=== PATIENT | male | born 2000 | race African-American/Black ===

== ENCOUNTER 2019-11-17 10:06 | Emergency (ER) | payer OTHER ==
[~2019-11-17] VITALS: Ht 185.4 cm; Wt 81.8 kg
[2019-11-17 10:52] LABS: HEMATOCRIT 46.3 % (42.0-52.0); HEMOGLOBIN 14.1 g/dl (13.5-17.5); MEAN CORPUSCULAR HEMOGLOBIN 20.9 pg (27.0-33.0); MEAN CORPUSCULAR HGB CONC 30.5 g/dl (32.0-36.5); MEAN CORPUSCULAR VOLUME 68.7 fl (80.0-96.0); PLATELET COUNT, AUTOMATED 294 10^3/uL (150-450); RED BLOOD COUNT 6.74 10^6/uL (4.30-6.10); WHITE BLOOD COUNT 5.4 10^3/uL (4.0-10.0)
[2019-11-17 11:18] LABS: AMPHETAMINES LEVEL URINE NEGATIVE (NEGATIVE); BARBITURATES URINE NEGATIVE (NEGATIVE); BENZODIAZEPINES URINE NEGATIVE (NEGATIVE); CANNABINOIDS URINE NEGATIVE (NEGATIVE); COCAINE METABOLITE URINE NEGATIVE (NEGATIVE); METHADONE URINE NEGATIVE (NEGATIVE); OPIATES URINE NEGATIVE (NEGATIVE); PHENCYCLIDINE URINE NEGATIVE (NEGATIVE)
[2019-11-17 11:40] LABS: ACETAMINOPHEN LEVEL < 2.0 UG/ML (10.0-30.0); ALT/SGPT 25 U/L (12-78); BILIRUBIN,DIRECT 0.3 MG/DL (0.0-0.2); BILIRUBIN,TOTAL 1.5 MG/DL (0.2-1.0); BLOOD UREA NITROGEN 14 MG/DL (7-18); CALCIUM LEVEL 9.2 MG/DL (8.5-10.1); CARBON DIOXIDE LEVEL 27 MEQ/L (21-32); CHLORIDE LEVEL 108 MEQ/L (98-107); CREATININE FOR GFR 1.12 MG/DL (0.70-1.30); ETHYL ALCOHOL (ETHANOL) < 0.003 % (0.000-0.010); GLOMERULAR FILTRATION RATE > 60.0 (>60); GLUCOSE, FASTING 112 MG/DL (70-100); SALICYLATE LEVEL < 1.7 MG/DL (5.0-30.0); SODIUM LEVEL 141 MEQ/L (136-145); TOTAL PROTEIN 7.5 GM/DL (6.4-8.2)
--- NOTE | 2019-11-17 14:56 | ED PDOC ---
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 She reported that he had made some unusual comments; however, these comments when examined appeared to be primarily that he was tired of his difficulties with his job, but had not had any difficulties with suicidal thoughts. The patient reports in the past he had had some difficulties as a child, but currently he reports that he is doing well, although he is unhappy with after recently. He additionally allowed us to talk to his mother for collateral information who reported that although the patient had a history there was no recent difficulties that she could pinpoint or unusual behavior. Patient reports at times some situational low mood about being far away from his who lives in [place]. Review Of Systems Depression: The patient denies any episodes of unprovoked depressed mood associated with neurovegetative symptoms lasting longer than 2 weeks with symptoms present nearly everyday. Anxiety: The patient denies any excessive worry associated with physical symptoms. They deny any experience of discreet panic in the past. Ivana: The patient denies any episodes of euphoria/dysphoria associated with dec reased need for sleep, hedonism, talkatively or impulsivity lasting longer than 5 days. Psychotic: The patient denies any experiences of auditory or visual hallucinations. They deny any episodes of paranoia or delusional thinking in the past Trauma: The patient denies any traumatic events associated with nightmares or intrusive thoughts. Borderline: The patient screens negative for borderline personality at this junction. Past Psychiatric History Has a history of being admitted when he was a teenager for reported cutting. On no current psychiatric medication. Family Psychiatric History The patient denies/is unaware any history of mental health history including addictions and suicide. 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 She has 6 kids by other men who currently with his child. The patient reports that he is supported by the income no legal problems at this time and no pending problems with his MILLIE. Reports he smokes tobacco, but does not drink excessive drugs. Medical History Patient has no significant past medical history. Allergies See below Mental Status Examination General: Well dressed with good hygiene Speech: Spontaneous and fluid Thought processes: Linear and logical MSK: Smooth and coordinated gait, no signs of tremors or involuntary orofacial movements Thought content: Future orientated Abstract reasoning, and computation: Intact Description of associations: Intact Description of abnormal or psychotic thoughts: Denies any suicidal or homicidal ideation. Denies any auditory or visual hallucinations. Does not appear to be responding to internal stimuli. Does not appear to be endorsing any bizarre or paranoid ideation. Judgment: fair Insight: fair Orientation: Alert and orientated 3 Cognition: Grossly normal Recent and remote memory: Intact Attention span and concentration: Intact Fund of knowledge: Adequate Mood: "okay" Affect: Euthymic with a full range Diagnoses Mental health evaluation. 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 Collateral information and examination do not yield any significant signs of suicidality that can be used in order to hold the patient against his will. His mental status is generally normal. The patient at the time of discharge did not meet criteria for involuntary admission/extension due to having a normal mental status exam, fair insight into the situation, They are engaged in the discharge process, as well as being friendly and amenable in behavioral control and havent been engaging in any observed concerning behavior or ideation recently. They decline voluntary extension/admission at this time and must be discharged in good cesar, as Im unable to make a case for holding the patient against their will. They may have historical risk factors of admissions and other interactions with psychiatry however, those are not modifiable from a clinical perspective. The patient will need to be discharged in good cesar. Disposition Discharged to [facility] Time Spent 30 minutes. Saturday FUNMILAYO BENTON DO Nov 17, 2019 14:56
[2019-11-17 17:29] VITALS: BP 128/76
== END 2019-11-17 17:32 | disposition home or self-care (01) ==
LOC: M ED 10:06
DX: F43.0 Acute stress reaction (principal)
CPT/HCPCS: 80048; 80076; 80307; 84443; 85027; 99284; G0480

== ENCOUNTER 2019-12-04 00:01 | Inpatient (IN) | payer OTHER ==
[~2019-12-04] VITALS: Ht 185.4 cm; Wt 83.1 kg
[2019-12-04 02:26] LABS: HEMATOCRIT 44.8 % (42.0-52.0); HEMOGLOBIN 13.5 g/dl (13.5-17.5); MEAN CORPUSCULAR HEMOGLOBIN 20.8 pg (27.0-33.0); MEAN CORPUSCULAR HGB CONC 30.1 g/dl (32.0-36.5); MEAN CORPUSCULAR VOLUME 69.1 fl (80.0-96.0); PLATELET COUNT, AUTOMATED 296 10^3/uL (150-450); RED BLOOD COUNT 6.48 10^6/uL (4.30-6.10); WHITE BLOOD COUNT 6.6 10^3/uL (4.0-10.0)
[2019-12-04 03:08] LABS: ACETAMINOPHEN LEVEL < 2.0 UG/ML (10.0-30.0); ALBUMIN 3.6 GM/DL (3.2-5.2); ALT/SGPT 23 U/L (12-78); BILIRUBIN,DIRECT 0.2 MG/DL (0.0-0.2); BILIRUBIN,TOTAL 0.8 MG/DL (0.2-1.0); BLOOD UREA NITROGEN 14 MG/DL (7-18); CALCIUM LEVEL 8.9 MG/DL (8.5-10.1); CARBON DIOXIDE LEVEL 30 MEQ/L (21-32); CHLORIDE LEVEL 107 MEQ/L (98-107); CREATININE FOR GFR 0.98 MG/DL (0.70-1.30); ETHYL ALCOHOL (ETHANOL) < 0.003 % (0.000-0.010); GLOMERULAR FILTRATION RATE > 60.0 (>60); GLUCOSE, FASTING 96 MG/DL (70-100); POTASSIUM SERUM 4.1 MEQ/L (3.5-5.1); SALICYLATE LEVEL < 1.7 MG/DL (5.0-30.0); SODIUM LEVEL 141 MEQ/L (136-145); TOTAL PROTEIN 6.9 GM/DL (6.4-8.2)
[2019-12-04 04:42] LABS: AMPHETAMINES LEVEL URINE NEGATIVE (NEGATIVE); BARBITURATES URINE NEGATIVE (NEGATIVE); BENZODIAZEPINES URINE NEGATIVE (NEGATIVE); CANNABINOIDS URINE NEGATIVE (NEGATIVE); COCAINE METABOLITE URINE NEGATIVE (NEGATIVE); METHADONE URINE NEGATIVE (NEGATIVE); OPIATES URINE NEGATIVE (NEGATIVE); PHENCYCLIDINE URINE NEGATIVE (NEGATIVE)
[2019-12-04] MEDS: NICOTINE 14 MG/24 HR TRANSDERMAL TD SCH (09:00)
[2019-12-04] MEDS ORDERED: MAALOX 30 ML SUSP *UDC PO PRN (13:30)
[2019-12-04] MEDS ORDERED: traZODone 50 MG TAB PO PRN (13:30)
[2019-12-04] MEDS ORDERED: ACETAMINOPHEN TAB 650MG DOSE (2X325MG) PO PRN (13:30)
[2019-12-04] MEDS ORDERED: MOM 30ML SUSPENSION UDC PO PRN (13:30)
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
--- NOTE | 2019-12-04 14:56 | ECGEPIP ---
[facility] Test Date: 2019-12-04 Pat Name: DEBORAH DHILLON Department: Room: - Gender: Male Peer Health Promoter: lazaro : 2000 Requested By: BRAEDEN Louis Order Number: [id number] Reading MD: Amandeep Hall Measurements Intervals [place] Rate: 52 P: 17 NM: 157 QRS: 85 QRSD: 105 T: 51 QT: 412 QTc: 386 Interpretive Statements SINUS BRADYCARDIA ST ELEVATION, PROBABLY EARLY REPOLARIZATION Comparison tracing not on file Electronically Signed on 12-04-2019 14:56:18 EST by Amandeep Hall
--- NOTE | 2019-12-04 16:06 | HPEPDOC ---
General Date of Admission Dec 04, 2019 at 13:21 Date of Service: Dec 04, 2019 Chief Complaint The patient is a 19-year-old male admitted with a reason for visit of Unspecified Depressive Disorder. Source: Patient Exam Limitations: No limitations Timing/Duration: Getting worse Severity: Moderate Associated Symptoms: Denies Symptoms History of Present Illness Patient is a 19-year-old male who has been admitted to the inpatient mental health unit following a attempted suicide. Patient reported that he acted foolishly after arguing with his . He placed a knife to his throat threaten ing to cut himself, but he was stopped in time. Patient denies any previous attempts at suicide. He can remember being on antidepressants in the past, but these were reportedly discontinued as he had become stable. Patient denies any current thoughts of HI/SI Home Medications No Active Prescriptions or Reported Meds Allergies Coded Allergies: No Known Allergies (Unverified , 11/17/19) Past Medical History Medical History Unremarkable Surgical History Pinned left shoulder following to fractures Family History Significant Family History: Diabetes Social History * Smoker: current smoker, cigarettes (3-4 per day) Alcohol: Denies Drugs: denies A-FIB/CHADSVASC A-FIB History Current/History of A-Fib/PAF?: No Current PO Anticoag Therapy: No Review of Systems Constitutional: Denies: Chills, Fever, Night Sweats Eyes: Denies: Pain, Vision change ENT: Denies: Head Aches, Ear Pain, Dysphagia Skin: Denies: Rash, Lesions, Breakdown Pulmonary: Denies: Dyspnea, Cough Cardiovascular: Denies: Chest Pain, Palpitations, Orthopnea, Paroxysmal Noc. Dyspnea, Lt Headedness Gastrointestinal: Denies: Nausea, Vomiting, Abdominal Pain, Diarrhea Genitourinary: Denies: Dysuria, Frequency, Incontinence, Retention Hematologic: Denies: Bruising, Bleeding Excessively Musculoskeletal: Denies: Neck Pain, Back Pain, Joint Pain, Muscle Pain, Spasms Neurological: Denies: Weakness, Numbness, Change in speech, Confusion Psych: Reports: Mood Normal; Denies: Depression, Memory Issues Physical Examination General Exam: Positive: Alert, No Acute Distress Eye Exam: Positive: PERRLA, Conjunctiva & lids normal, EOMI; Negative: Sclera icteric ENT Exam: Positive: Atraumatic, Mucous membr. moist/pink, Pharynx Normal Neck Exam: Positive: Supple; Negative: thyromegaly Chest Exam: Positive: Clear to auscultation, Normal air movement Heart Exam: Positive: Rate Normal, Regular Rhythm, Normal S1, Normal S2; Negative: Murmurs, Rubs Telemetry: Positive: No significant arrhythmia Abdomen Exam: Positive: Normal bowel sounds, Soft; Negative: Tenderness Extremity Exam: Positive: Normal pulses; Negative: Clubbing, Cyanosis, Edema Skin Exam: Positive: Nl turgor and temperature Neuro Exam: Positive: Normal Gait, Normal Speech, Strength at 5/5 X4 ext, Cranial Nerves 3-12 NL Psych Exam: Positive: Mood NL, Oriented x 3 Vital Signs Vital Signs Date Time Temp Pulse Resp B/P (MAP) Pulse Ox O2 Delivery O2 Flow Rate FiO2 12/04/19 03:49 97.6 57 15 119/60 (79) 100 Room Air Laboratory Data Labs 24H Laboratory Tests 2 12/04/19 02:17: Nucleated Red Blood Cells % (auto) 0.0, Anion Gap 4L, Glomerular Filtration Rate > 60.0, Calcium Level 8.9, Total Bilirubin 0.8, Direct Bilirubin 0.2, Aspartate Amino Transf (AST/SGOT) 12, Alanine Aminotransferase (ALT/SGPT) 23, Alkaline Phosphatase 62, Total Protein 6.9, Albumin 3.6, Albumin/Globulin Ratio 1.09, Thyroid Stimulating Hormone (TSH) 1.390, Salicylates Level < 1.7L, Acetaminophen Level < 2.0L, Ethyl Alcohol Level < 0.003 12/04/19 04:06: Urine Opiates Screen NEGATIVE, Urine Methadone Screen NEGATIVE, Urine Barbiturates Screen NEGATIVE, Urine Phencyclidine Screen NEGATIVE, Urine Amphetamines Screen NEGATIVE, Urine Benzodiazepines Screen NEGATIVE, Urine Cocaine Metabolite Screen NEGATIVE, Urine Cannabinoids Screen NEGATIVE CBC/BMP Laboratory Tests 12/04/19 02:17 Assessment/Plan #1. Depressive disorder, with suicide attempt Management as per psychiatry. Medicine will sign off at this time. Please feel free to reconsult as needed. Plan / VTE VTE Prophylaxis Ordered?: QUYNH Pina PA-C Dec 04, 2019 16:06
[2019-12-04 16:12] VITALS: BP 116/57
[2019-12-05 05:47] VITALS: BP 111/55
[2019-12-05] MEDS: NICOTINE 14 MG/24 HR TRANSDERMAL TD SCH (08:54)
[2019-12-05 16:05] VITALS: BP 136/79
[2019-12-06 06:19] VITALS: BP 116/50
[2019-12-06] MEDS: NICOTINE POLACRILEX 2 MG GUM PO PRN ×2 (08:22→17:39)
[2019-12-06 16:16] VITALS: BP 106/56
--- NOTE | 2019-12-06 16:48 | MHIPN ---
DATE: 12/05/2019 The patient states that when he voiced suicidal ideations prior to admission it was "in the heat of the moment situation." He says that he was angry at the time. He says that his mood today is "better." He says that he slept good. He says his and he have talked about the fact that they need to go do marital counseling. MENTAL STATUS EXAMINATION: He is alert and oriented times three. He is pleasant, cooperative, verbally spontaneous. Eye contact is fairly good. There is no formal thought disorder noted. He says his mood is "better, calmer." Affect is appropriate to mood. He is not psychotic, suicidal or homicidal. Concentration is fair. Memory is good. Insight and judgment fair. DIAGNOSES: 1. Depression. 2. Anxiety. TREATMENT PLAN: We will continue to monitor the patient for continued resolution of suicidal ideations and continued elevation of mood.
[2019-12-06] MEDS: IBUPROFEN 400 MG TAB PO PRN (17:39)
[2019-12-07 06:12] VITALS: BP 142/62
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
[2019-12-07] MEDS: IBUPROFEN 400 MG TAB PO PRN (08:32)
[2019-12-07] MEDS: NICOTINE POLACRILEX 2 MG GUM PO PRN (08:32)
--- NOTE | 2019-12-07 18:44 | MHIPN ---
DATE: 12/06/2019 The patient today states "I'm doing pretty good." He says he slept good. He has no complaints. He continues to say when he voiced suicidal ideation, it was an impulsive act at a time that he was arguing. MENTAL STATUS EXAMINATION: This patient is alert and oriented times three. Eye contact is good. He is verbally spontaneous. There is formal thought disorder noted. He says his mood is okay. Affect full range and appropriate. He is not psychotic, suicidal or homicidal. Concentration is fair. Memory intact. Insight and judgment is fair. DIAGNOSIS: Adjustment disorder with depression and anxiety. TREATMENT PLAN: We will continue to monitor the patient for continued elevation and stabilization of his mood and continued resolution of suicidal ideations.
== END 2019-12-07 12:00 | disposition home or self-care (01) | DRG 882 ==
LOC: M ED 00:01 → M ED INP 13:21 → M PSY 15:06
PROVIDERS: ADMIT Psychiatry & Neurology Psychiatry; ATTEND Psychiatry & Neurology Psychiatry
DX: F43.23 Adjustment disorder with mixed anxiety and depressed mood (principal); F17.210 Nicotine dependence, cigarettes, uncomplicated

== ENCOUNTER 2020-01-08 21:54 | Emergency (ER) | payer OTHER ==
[~2020-01-08] VITALS: Ht 185.4 cm; Wt 82.3 kg
[2020-01-08 21:54] VITALS: BP 122/66
[2020-01-08] MEDS ORDERED: ACETAMINOPHEN 325 MG TAB PO ONE (22:45)
[2020-01-08] MEDS ORDERED: KETOROLAC 60 MG/2 ML VIAL (J1885) IM ONE (22:45)
[2020-01-08] MEDS ORDERED: KETO10TAB PO (23:30)
[2020-01-08] MEDS ORDERED: KETOROLAC TROMETHAMINE 10 MG TAB PO ONE (23:45)
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
== END 2020-01-08 23:47 | disposition home or self-care (01) ==
LOC: M ED 21:54
DX: S83.422A Sprain of lateral collateral ligament of left knee, initial encounter (principal); X50.0XXA Overexertion from strenuous movement or load, initial encounter; Y92.019 Unspecified place in single-family (private) house as the place of occurrence of the external cause; Y93.83 Activity, rough housing and horseplay
CPT/HCPCS: 73564; 96372; 99284; J1885

== ENCOUNTER 2020-10-06 13:32 | Emergency (ER) | payer OTHER ==
[~2020-10-06] VITALS: Ht 185.4 cm; Wt 117.6 kg
[~2020-10-06 13:32] MED LIST: KETO10TAB PO
--- NOTE | 2020-10-06 15:26 | REP ---
INDICATION: lac to hand from glass COMPARISON: None. TECHNIQUE: Four views left fingers. FINDINGS: There is no evidence of acute fracture, dislocation, or intrinsic bone disease.No radiopaque foreign body is seen in the soft tissues. IMPRESSION: No fracture or dislocation. No radiopaque foreign body is seen in the soft tissues. <Electronically signed by Kevin Wong > 10/06/20 [id number]
[2020-10-06] MEDS ORDERED: LIDOCAINE 1% MDV 20ML VIAL SC ONE (16:00)
[2020-10-06] MEDS ORDERED: NEOSPORIN OINT 0.9 GM PKT TOP ONE (16:30)
[2020-10-06 16:34] VITALS: BP 121/72
== END 2020-10-06 16:34 | disposition home or self-care (01) ==
LOC: M ED 13:32
DX: S61.411A Laceration without foreign body of right hand, initial encounter (principal); W25.XXXA Contact with sharp glass, initial encounter; Y92.009 Unspecified place in unspecified non-institutional (private) residence as the place of occurrence of the external cause; Y93.9 Activity, unspecified; Y99.9 Unspecified external cause status; F17.200 Nicotine dependence, unspecified, uncomplicated

== ENCOUNTER 2021-04-11 07:40 | Emergency (ER) | payer OTHER ==
[~2021-04-11] VITALS: Ht 185.4 cm; Wt 124.1 kg
[2021-04-11 07:41] VITALS: BP 121/68
--- NOTE | 2021-04-11 08:59 | REP ---
INDICATION: pain COMPARISON: None TECHNIQUE: Five views FINDINGS: The compartments are symmetric and relatively well maintained. There is no acute fracture or destructive osseous lesion. IMPRESSION: Within normal limits <Electronically signed by Baljit Thayer > 04/11/21 [id number]
== END 2021-04-11 09:33 | disposition home or self-care (01) ==
LOC: M ED 07:40
DX: M25.561 Pain in right knee (principal); F33.9 Major depressive disorder, recurrent, unspecified; F41.9 Anxiety disorder, unspecified; F17.210 Nicotine dependence, cigarettes, uncomplicated

== ENCOUNTER 2021-06-19 08:14 | Emergency (ER) | payer OTHER ==
[2021-06-19] MEDS ORDERED: NS 1,000 ML IV SCH (09:15)
[2021-06-19] MEDS ORDERED: GI COCKTAIL 50ML BTL(HYOSCYAMINE/MAALOX/LIDOCAINE VISCOUS)(1:3:1) PO ONE (09:35)
--- NOTE | 2021-06-19 09:39 | REP ---
INDICATION: CHEST PAIN. COMPARISON: None. TECHNIQUE: PA and lateral FINDINGS: The superior mediastinal structures are midline. The cardiac silhouette is unremarkable in size, shape, and position. The diaphragmatic surfaces of the lungs are regular, and the costophrenic angles are clear. The pulmonary lau are clear. The imaged osseous structures are intact. IMPRESSION: There is no acute cardiopulmonary disease. <Electronically signed by Baljit Thayer > 06/19/21 [id number]
[2021-06-19 10:27] LABS: BASO % 0.4 % (0.0-1.0); EOS # 0.8 10^3/uL (0.0-0.5); EOS % 11.7 % (0.0-3.0); HEMATOCRIT 45.2 % (42.0-52.0); HEMOGLOBIN 13.7 g/dl (13.5-17.5); LYMPH # 2.6 10^3/uL (1.5-5.0); LYMPH % 36.4 % (24.0-44.0); MEAN CORPUSCULAR HEMOGLOBIN 21.2 pg (27.0-33.0); MEAN CORPUSCULAR HGB CONC 30.3 g/dl (32.0-36.5); MONO # 0.7 10^3/uL (0.0-0.8); MONO % 10.6 % (2.0-8.0); NEUTROPHILS # 2.9 10^3/uL (1.5-8.5); NEUTROPHILS % 40.6 % (36.0-66.0); PLATELET COUNT, AUTOMATED 285 10^3/uL (150-450); RED BLOOD COUNT 6.46 10^6/uL (4.30-6.10)
[2021-06-19 11:04] LABS: BLOOD UREA NITROGEN 8 MG/DL (7-18); CALCIUM LEVEL 8.8 MG/DL (8.5-10.1); CARBON DIOXIDE LEVEL 24 MEQ/L (21-32); CHLORIDE LEVEL 108 MEQ/L (98-107); CK-MB VALUE MASS < 1.0 NG/ML (<3.6); CPK CREATINE PHOSPHOKINASE 247 U/L (39-308); CREATININE FOR GFR 0.87 MG/DL (0.70-1.30); GLOMERULAR FILTRATION RATE > 60.0 (>60); GLUCOSE, FASTING 93 MG/DL (70-100); POTASSIUM SERUM 4.3 MEQ/L (3.5-5.1); SODIUM LEVEL 140 MEQ/L (136-145); TROPONIN I < 0.02 NG/ML (< 0.10)
[2021-06-19] MEDS ORDERED: MORPHINE 4 MG/ML 1ML VIAL/SYRINGE (J2270) IV ONE (11:10)
[2021-06-19] MEDS ORDERED: ISOVUE-370 76% 100ML VIAL As Ordered ONE (11:32)
--- NOTE | 2021-06-19 12:45 | REP ---
INDICATION: chest pain. COMPARISON: Radiographs today. TECHNIQUE: CT angiogram chest performed following the intravenous administration of 100 cc of Isovue 370. Sagittal and coronal reconstruction images are performed. FINDINGS: Lungs: Clear, no infiltrate or nodule. Mediastinum: No adenopathy. Pulmonary arteries: No evidence of pulmonary embolism. Rajni: No adenopathy. Axilla: No adenopathy. Pleura: No effusion. Heart: Not enlarged. Thoracic aorta: No aneurysm or dissection. Upper abdominal structures: Unremarkable. Visualized osseous structures: Unremarkable. IMPRESSION: No CT evidence of pulmonary embolism. No infiltrate seen. <Electronically signed by Kevin Wong > 06/19/21 [id number]
[2021-06-19 13:12] LABS: ALBUMIN 2.9 GM/DL (3.2-5.2); ALT/SGPT 21 U/L (12-78); BILIRUBIN,DIRECT 0.2 MG/DL (0.0-0.2); BILIRUBIN,TOTAL 0.6 MG/DL (0.2-1.0); CK-MB VALUE MASS < 1.0 NG/ML (<3.6); CPK CREATINE PHOSPHOKINASE 221 U/L (39-308); LIPASE 72 U/L (73-393); MB/CK RELATIVE INDEX 0.45 (< OR =4); TOTAL PROTEIN 6.1 GM/DL (6.4-8.2); TROPONIN I < 0.02 NG/ML (< 0.10)
[2021-06-19 14:43] VITALS: BP 129/67
--- NOTE | 2021-06-20 13:49 | ECGEPIP ---
[facility] - ED Test Date: 2021-06-19 Pat Name: DEBORAH DHILLON Department: Room: - Gender: Male Digital Account Manager: : 2000 Requested By: MICH Lyons Order Number: [id number] Reading MD: Bertha Rose Measurements Intervals [place] Rate: 68 P: 52 [place]: 172 QRS: 58 QRSD: 84 T: 10 QT: 398 QTc: 423 Interpretive Statements Normal sinus rhythm increased rate 12/04/19 Electronically Signed on 06-20-2021 13:48:41 EDT by Bertha Rose
--- NOTE | 2021-06-20 20:17 | ECGEPIP ---
[facility] - ED Test Date: 2021-06-19 Pat Name: DEBORAH DHILLON Department: Room: - Gender: Male Back Roller: ED : 2000 Requested By: MARITA Rosario Order Number: [id number] Reading MD: Bertha Rose Measurements Intervals [place] Rate: 66 P: 51 [place]: 164 QRS: 77 QRSD: 80 T: 10 QT: 382 QTc: 400 Interpretive Statements Normal sinus rhythm increased rate 12/04/19 Electronically Signed on 06-20-2021 20:16:50 EDT by Bertha Rose
== END 2021-06-19 14:45 | disposition home or self-care (01) ==
LOC: M ED 08:14 → EDBD 08:14 → M ED 14:45
DX: M94.0 Chondrocostal junction syndrome [Tietze] (principal); S29.011A Strain of muscle and tendon of front wall of thorax, initial encounter; X50.0XXA Overexertion from strenuous movement or load, initial encounter; Y92.9 Unspecified place or not applicable; Y93.B3 Activity, free weights; Y99.9 Unspecified external cause status; F32.9 Major depressive disorder, single episode, unspecified
CPT/HCPCS: 71046; 71275; 80048; 80076; 82550; 82553; 83690; 84484; 85025; 85379; 93005; 93041; 94760; 96361; 96374; 99285; J2270; Q9967

== ENCOUNTER 2021-06-26 09:13 | Emergency (ER) | payer OTHER ==
[~2021-06-26] VITALS: Ht 180.3 cm; Wt 125.0 kg
[2021-06-26] MEDS ORDERED: KETOROLAC TROMETHAMINE 10 MG TAB PO ONE (11:30)
--- NOTE | 2021-06-26 12:15 | REP ---
INDICATION: sternal pain. COMPARISON: Comparison chest x-ray June 19, 2021 TECHNIQUE: Five views of the bilateral rib cage including PA chest. FINDINGS: PA chest radiograph is normal. There is no evidence of pneumothorax or hydrothorax. Mediastinum is not widened. Heart size is normal. Lung lau are clear. Multiple views of the ribs bilaterally demonstrate no rib or sternal fracture or bony destructive lesion. Overall mineralization pattern is normal. IMPRESSION: Negative bilateral rib radiographs. <Electronically signed by Margarito Atkinson > 06/26/21 1216
--- NOTE | 2021-06-26 12:24 | REPVR ---
PROCEDURE INFORMATION: Exam: CT Thoracic Spine Without Contrast Exam date and time: 06/26/2021 11:58 AM Age: 21 years old Clinical indication: Other: Chest pain x1 week; Additional info: Pain x 1 week TECHNIQUE: Imaging protocol: Computed tomography images of the thoracic spine without contrast. Radiation optimization: All CT scans at this facility use at least one of these dose optimization techniques: automated exposure control; mA and/or kV adjustment per patient size (includes targeted exams where dose is matched to clinical indication); or iterative reconstruction. COMPARISON: CT ANGIO CHEST 06/19/2021 12:26 PM FINDINGS: Vertebrae: No acute fracture. Normal alignment. Discs/Spinal canal/Neural foramina: No significant spinal canal stenosis. Soft tissues: Unremarkable. IMPRESSION: Unremarkable thoracic spine. Electronically signed by: Oj Zhao On 06/26/2021 12:23:31 PM
[2021-06-26 12:49] LABS: RSV AMPLIFICATION NEGATIVE (NEGATIVE)
[2021-06-26 13:21] VITALS: BP 146/90
== END 2021-06-26 13:25 | disposition home or self-care (01) ==
LOC: M ED 09:13
DX: R07.1 Chest pain on breathing (principal); F17.200 Nicotine dependence, unspecified, uncomplicated

== ENCOUNTER 2021-12-24 19:53 | Emergency (ER) | payer OTHER ==
[~2021-12-24] VITALS: Ht 182.9 cm; Wt 122.7 kg
[2021-12-24] MEDS ORDERED: NS 1,000 ML IV ONE (20:00)
[2021-12-24 20:47] LABS: BASO % 0.3 % (0.0-1.0); EOS # 0.2 10^3/uL (0.0-0.5); EOS % 2.9 % (0.0-3.0); HEMATOCRIT 45.4 % (42.0-52.0); LYMPH # 2.3 10^3/uL (1.5-5.0); LYMPH % 34.9 % (24.0-44.0); MEAN CORPUSCULAR HEMOGLOBIN 20.9 pg (27.0-33.0); MEAN CORPUSCULAR HGB CONC 30.8 g/dl (32.0-36.5); MEAN CORPUSCULAR VOLUME 67.9 fl (80.0-96.0); MONO % 14.6 % (2.0-8.0); NEUTROPHILS # 3.1 10^3/uL (1.5-8.5); NEUTROPHILS % 47.1 % (36.0-66.0); PLATELET COUNT, AUTOMATED 316 10^3/uL (150-450); RED BLOOD COUNT 6.69 10^6/uL (4.30-6.10); WHITE BLOOD COUNT 6.6 10^3/uL (4.0-10.0)
[2021-12-24 20:58] LABS: INR 0.98; PROTHROMBIN TIME 13.4 SECONDS (12.7-14.5)
[2021-12-24 20:59] LABS: PARTIAL THROMBOPLASTIN TIME 31.5 SECONDS (25.9-37.0)
[2021-12-24 21:12] LABS: ALBUMIN 3.4 GM/DL (3.2-5.2); ALT/SGPT 19 U/L (12-78); AMYLASE 54 U/L (25-115); BILIRUBIN,DIRECT 0.2 MG/DL (0.0-0.2); BILIRUBIN,TOTAL 0.8 MG/DL (0.2-1.0); BLOOD UREA NITROGEN 9 MG/DL (7-18); CALCIUM LEVEL 9.3 MG/DL (8.5-10.1); CARBON DIOXIDE LEVEL 26 MEQ/L (21-32); CHLORIDE LEVEL 106 MEQ/L (98-107); CREATININE FOR GFR 0.87 MG/DL (0.70-1.30); ETHYL ALCOHOL (ETHANOL) < 0.003 % (0.000-0.010); GLOMERULAR FILTRATION RATE > 60.0 (>60); GLUCOSE, FASTING 88 MG/DL (70-100); LIPASE 66 U/L (73-393); POTASSIUM SERUM 3.6 MEQ/L (3.5-5.1); SODIUM LEVEL 137 MEQ/L (136-145); TOTAL PROTEIN 7.5 GM/DL (6.4-8.2)
[2021-12-24] MEDS ORDERED: KETOROLAC 30 MG/ML 1ML VIAL IV ONE (21:35)
[2021-12-24 22:11] LABS: APPEARANCE, URINE CLEAR (CLEAR); BACTERIA, URINE AUTO NEGATIVE (NEGATIVE); BILIRUBIN, URINE AUTO NEGATIVE (NEGATIVE); BLOOD, URINE BLOOD NEGATIVE (NEGATIVE); COLOR, URINE YELLOW (YELLOW); GLUCOSE, URINE (UA) AUTO NEGATIVE (NEGATIVE); KETONE, URINE AUTO NEGATIVE (NEGATIVE); LEUKOCYTE ESTERASE, URINE AUTO NEGATIVE (NEGATIVE); MUCUS, URINE SMALL (NEGATIVE); NITRITE, URINE AUTO NEGATIVE (NEGATIVE); PROTEIN, URINE AUTO NEGATIVE (NEGATIVE); RBC, URINE AUTO 0 /HPF (0-3); SPECIFIC GRAVITY URINE AUTO 1.014 (1.002-1.035); SQUAMOUS EPITHELIAL CELL UR AU 1 /HPF (0-6); UROBILINOGEN, URINE AUTO 0.2 mg/dL (0.0-2.0); WBC, URINE AUTO 0 /HPF (0-3)
[2021-12-24 22:40] LABS: AMPHETAMINES LEVEL URINE NEGATIVE (NEGATIVE); BARBITURATES URINE NEGATIVE (NEGATIVE); BENZODIAZEPINES URINE NEGATIVE (NEGATIVE); CANNABINOIDS URINE POSITIVE (NEGATIVE); COCAINE METABOLITE URINE NEGATIVE (NEGATIVE); METHADONE URINE NEGATIVE (NEGATIVE); OPIATES URINE NEGATIVE (NEGATIVE); PHENCYCLIDINE URINE NEGATIVE (NEGATIVE)
[2021-12-24 23:15] VITALS: BP 119/77
== END 2021-12-24 23:56 | disposition home or self-care (01) ==
LOC: M ED 19:53
DX: S06.9X0A Unspecified intracranial injury without loss of consciousness, initial encounter (principal); V47.5XXA Car driver injured in collision with fixed or stationary object in traffic accident, initial encounter; M43.02 Spondylolysis, cervical region
CPT/HCPCS: 36600; 70450; 71250; 72125; 74176; 80048; 80076; 80307; 81001; 82077; 82150; 82803; 83605; 83690; 84484; 85025; 85610; 85730; 87798; 93005; 93041; 94760; 96361; 96374; 99285; J1885

== ENCOUNTER 2021-12-26 10:48 | Emergency (ER) | payer OTHER ==
[~2021-12-26] VITALS: Ht 180.3 cm; Wt 122.7 kg
[2021-12-26] MEDS ORDERED: KETOROLAC 30 MG/ML 1ML VIAL IV ONE (15:00)
[2021-12-26] MEDS ORDERED: ACETAMINOPHEN 325 MG TAB PO ONE (15:00)
[2021-12-26] MEDS ORDERED: NS 1,000 ML IV ONE (15:00)
[2021-12-26] MEDS ORDERED: METOCLOPRAMIDE INJ 10MG/2ML VIAL (J2765 PER 1) IV ONE (15:00)
[2021-12-26] MEDS ORDERED: ONDA4TAB6 PO (16:33)
[2021-12-26] MEDS ORDERED: KETO10TAB PO (16:33)
[2021-12-26 16:40] VITALS: BP 126/81
== END 2021-12-26 16:57 | disposition home or self-care (01) ==
LOC: M ED 10:48
DX: F07.81 Postconcussional syndrome (principal); F17.200 Nicotine dependence, unspecified, uncomplicated; F32.A Depression, unspecified; F41.8 Other specified anxiety disorders; Z87.01 Personal history of pneumonia (recurrent)
CPT/HCPCS: 70450; 96361; 96374; 99284; J1885; J2765

== ENCOUNTER 2022-02-20 18:13 | Inpatient (IN) | payer OTHER ==
[~2022-02-20] VITALS: Ht 185.4 cm; Wt 128.2 kg
[~2022-02-20 18:13] MED LIST changes: +ONDA4TAB6 PO
[2022-02-20] MEDS ORDERED: ISOVUE-370 76% 100ML VIAL As Ordered ONE (19:06)
[2022-02-20 19:17] LABS: BASO % 0.4 % (0.0-1.0); EOS # 0.3 10^3/uL (0.0-0.5); EOS % 3.7 % (0.0-3.0); HEMATOCRIT 47.2 % (42.0-52.0); HEMOGLOBIN 14.2 g/dl (13.5-17.5); LYMPH # 2.8 10^3/uL (1.5-5.0); LYMPH % 36.9 % (24.0-44.0); MEAN CORPUSCULAR HEMOGLOBIN 20.8 pg (27.0-33.0); MEAN CORPUSCULAR HGB CONC 30.1 g/dl (32.0-36.5); MONO # 0.8 10^3/uL (0.0-0.8); MONO % 10.3 % (2.0-8.0); NEUTROPHILS # 3.6 10^3/uL (1.5-8.5); NEUTROPHILS % 48.4 % (36.0-66.0); PLATELET COUNT, AUTOMATED 339 10^3/uL (150-450); RED BLOOD COUNT 6.84 10^6/uL (4.30-6.10); WHITE BLOOD COUNT 7.5 10^3/uL (4.0-10.0)
[2022-02-20 19:31] LABS: OSMOLALITY SERUM 286 MOSM/KG (275-295)
[2022-02-20 19:33] LABS: CK-MB VALUE MASS 1.1 NG/ML (<3.6); MB/CK RELATIVE INDEX 0.36 (< OR =4)
[2022-02-20 19:40] LABS: ACETAMINOPHEN LEVEL < 2.0 UG/ML (10.0-30.0); ALBUMIN 3.8 GM/DL (3.2-5.2); ALT/SGPT 20 U/L (12-78); BILIRUBIN,DIRECT 0.2 MG/DL (0.0-0.2); BILIRUBIN,TOTAL 0.7 MG/DL (0.2-1.0); BLOOD UREA NITROGEN 8 MG/DL (7-18); CALCIUM LEVEL 9.8 MG/DL (8.5-10.1); CARBON DIOXIDE LEVEL 24 MEQ/L (21-32); CHLORIDE LEVEL 107 MEQ/L (98-107); CREATININE FOR GFR 1.19 MG/DL (0.70-1.30); ETHYL ALCOHOL (ETHANOL) < 0.003 % (0.000-0.010); GLOMERULAR FILTRATION RATE > 60.0 (>60); GLUCOSE, FASTING 125 MG/DL (70-100); POTASSIUM SERUM 3.9 MEQ/L (3.5-5.1); SALICYLATE LEVEL < 1.7 MG/DL (5.0-30.0); SODIUM LEVEL 135 MEQ/L (136-145); TOTAL PROTEIN 7.9 GM/DL (6.4-8.2)
[2022-02-20 19:57] LABS: RSV AMPLIFICATION NEGATIVE (NEGATIVE)
[2022-02-20] MEDS ORDERED: dexameTHASONE 20MG/5ML VIAL (J1100 PER 1MG) IV STA (22:36)
[2022-02-20] MEDS ORDERED: ACETAMINOPHEN TAB 650MG DOSE (2X325MG) PO PRN (23:10)
[2022-02-20] MEDS ORDERED: MAALOX 30 ML SUSP *UDC PO PRN (23:10)
[2022-02-20] MEDS ORDERED: MOM 30ML SUSPENSION UDC PO PRN (23:10)
[2022-02-20] MEDS ORDERED: HOME MED LIST COMPLETE! XX SCH (23:20)
[2022-02-20] MEDS: NS 1,000 ML IV SCH (23:59)
[2022-02-21] MEDS ORDERED: metroNIDAZOLE 500 MG in IV 1 EA IV SCH (00:40)
[2022-02-21] MEDS ORDERED: cefTRIAXone SOD 1 GM in D5W MINI-BAG PLUS 50 ML IV SCH (00:40)
[2022-02-21] MEDS: dexameTHASONE 4 MG/ML 1ML VIAL (J1100 PER 1MG) IV SCH ×4 (03:57→21:30)
[2022-02-21] MEDS: MORPHINE 2 MG/ML 1ML VIAL IV PRN ×2 (04:48→09:56)
[2022-02-21 07:46] LABS: BASO % 0.1 % (0.0-1.0); HEMATOCRIT 46.4 % (42.0-52.0); HEMOGLOBIN 13.9 g/dl (13.5-17.5); LYMPH # 1.5 10^3/uL (1.5-5.0); LYMPH % 17.2 % (24.0-44.0); MEAN CORPUSCULAR HEMOGLOBIN 20.9 pg (27.0-33.0); MEAN CORPUSCULAR VOLUME 69.9 fl (80.0-96.0); MONO # 0.1 10^3/uL (0.0-0.8); MONO % 1.4 % (2.0-8.0); NEUTROPHILS # 6.9 10^3/uL (1.5-8.5); NEUTROPHILS % 80.9 % (36.0-66.0); PLATELET COUNT, AUTOMATED 323 10^3/uL (150-450); RED BLOOD COUNT 6.64 10^6/uL (4.30-6.10); WHITE BLOOD COUNT 8.5 10^3/uL (4.0-10.0)
[2022-02-21] MEDS ORDERED: ISOVUE-370 76% 100ML VIAL As Ordered ONE (08:07)
[2022-02-21] MEDS: NS 1,000 ML IV SCH ×2 (08:10→09:55)
[2022-02-21 08:18] LABS: ALBUMIN 3.4 GM/DL (3.2-5.2); ALT/SGPT 13 U/L (12-78); BILIRUBIN,TOTAL 0.8 MG/DL (0.2-1.0); BLOOD UREA NITROGEN 7 MG/DL (7-18); CARBON DIOXIDE LEVEL 26 MEQ/L (21-32); CHLORIDE LEVEL 108 MEQ/L (98-107); CREATININE FOR GFR 1.03 MG/DL (0.70-1.30); GLOMERULAR FILTRATION RATE > 60.0 (>60); GLUCOSE, FASTING 133 MG/DL (70-100); MAGNESIUM LEVEL 2.2 MG/DL (1.8-2.4); POTASSIUM SERUM 4.8 MEQ/L (3.5-5.1); SODIUM LEVEL 138 MEQ/L (136-145); TOTAL PROTEIN 7.1 GM/DL (6.4-8.2)
[2022-02-21 20:38] VITALS: BP 108/71
[2022-02-21 21:03] VITALS: O2SAT 97
[2022-02-21] MEDS ORDERED: KETOROLAC 30 MG/ML 1ML VIAL IV PRN (21:35)
[2022-02-21 22:00] VITALS: O2SAT 94
[2022-02-21 22:02] VITALS: O2SAT 96
[2022-02-21 22:03] VITALS: BP 123/62
[2022-02-21 23:00] VITALS: O2SAT 95
[2022-02-22] VITALS (10 sets, daily range): BP systolic 106–121; BP diastolic 54–78; O2SAT 97–100
[2022-02-22] MEDS: dexameTHASONE 4 MG/ML 1ML VIAL (J1100 PER 1MG) IV SCH (04:19)
[2022-02-22] MEDS: NS 1,000 ML IV SCH (05:10)
[2022-02-22 07:35] LABS: HEMATOCRIT 41.7 % (42.0-52.0); HEMOGLOBIN 12.9 g/dl (13.5-17.5); MEAN CORPUSCULAR HEMOGLOBIN 21.5 pg (27.0-33.0); MEAN CORPUSCULAR HGB CONC 30.9 g/dl (32.0-36.5); MEAN CORPUSCULAR VOLUME 69.6 fl (80.0-96.0); PLATELET COUNT, AUTOMATED 323 10^3/uL (150-450); RED BLOOD COUNT 5.99 10^6/uL (4.30-6.10); WHITE BLOOD COUNT 12.7 10^3/uL (4.0-10.0)
[2022-02-22 07:54] LABS: BLOOD UREA NITROGEN 9 MG/DL (7-18); CALCIUM LEVEL 9.2 MG/DL (8.5-10.1); CARBON DIOXIDE LEVEL 27 MEQ/L (21-32); CHLORIDE LEVEL 109 MEQ/L (98-107); CREATININE FOR GFR 0.99 MG/DL (0.70-1.30); GLOMERULAR FILTRATION RATE > 60.0 (>60); GLUCOSE, FASTING 140 MG/DL (70-100); MAGNESIUM LEVEL 2.2 MG/DL (1.8-2.4); POTASSIUM SERUM 4.2 MEQ/L (3.5-5.1); SODIUM LEVEL 142 MEQ/L (136-145)
[2022-02-22] MEDS ORDERED: predniSONE 20 MG TAB PO SCH (10:00)
[2022-02-22] MEDS ORDERED: ACETAMINOPHEN TAB 650MG DOSE (2X325MG) PO PRN (13:35)
[2022-02-22] MEDS ORDERED: PRED20TA PO (16:55)
== END 2022-02-23 00:25 | DRG 923 ==
LOC: M ED 18:13 → M ED INP 18:14 → INTOOBSV 23:06 → M ED INP 23:06 → UNDOADMOB 23:06 → OBSVTOIN 02-21 09:35 → ENRESERV 02-21 19:32 → M ED INP 02-21 20:14 → M PCU 02-21 20:14 → M MSPAV 02-22 12:06 → M PCU 02-22 12:06 → UNDODISOB 02-23 00:25
PROVIDERS: ADMIT Family Medicine; ATTEND Internal Medicine
DX: T71.162A Asphyxiation due to hanging, intentional self-harm, initial encounter (principal); T58.92XA Toxic effect of carbon monoxide from unspecified source, intentional self-harm, initial encounter; F32.A Depression, unspecified; F41.9 Anxiety disorder, unspecified

== ENCOUNTER 2022-02-22 18:10 | Inpatient (IN) | payer OTHER ==
[~2022-02-22] VITALS: Ht 185.4 cm; Wt 124.7 kg
[~2022-02-22 18:10] MED LIST changes: +PRED20TA PO
[2022-02-22] MEDS ORDERED: traZODone 50 MG TAB PO PRN (18:15)
[2022-02-22] MEDS ORDERED: MOM 30ML SUSPENSION UDC PO PRN (18:15)
[2022-02-23 00:36] VITALS: BP 107/83
[2022-02-23] MEDS ORDERED: HOME MED LIST COMPLETE! XX SCH (01:05)
[2022-02-23] MEDS: predniSONE 20 MG TAB PO SCH (11:35)
[2022-02-23] MEDS: SERTRALINE HCL 50 MG TAB PO SCH (12:08)
[2022-02-23 17:51] VITALS: BP 157/56
[2022-02-23] MEDS: MAALOX 30 ML SUSP *UDC PO PRN (19:57)
[2022-02-23] MEDS: ARIPiprazole 2 MG TAB PO SCH (19:58)
[2022-02-24] MEDS: MAALOX 30 ML SUSP *UDC PO PRN (03:30)
[2022-02-24 06:32] VITALS: BP 153/98
[2022-02-24 08:32] LABS: CHOLESTEROL RISK RATIO 2.323 (<5)
[2022-02-24] MEDS: predniSONE 20 MG TAB PO SCH (10:03)
[2022-02-24] MEDS: SERTRALINE HCL 50 MG TAB PO SCH (10:03)
[2022-02-24] MEDS ORDERED: ONDANSETRON 4MG ORAL DISINTEGRATING TAB PO PRN (10:45)
[2022-02-24 18:39] VITALS: BP 114/62
[2022-02-24] MEDS: ACETAMINOPHEN TAB 650MG DOSE (2X325MG) PO PRN (21:42)
[2022-02-24] MEDS: ARIPiprazole 2 MG TAB PO SCH (21:42)
[2022-02-25 06:34] VITALS: BP 120/70
[2022-02-25] MEDS: predniSONE 20 MG TAB PO SCH (10:24)
[2022-02-25] MEDS: SERTRALINE HCL 25 MG TABLET PO SCH (10:24)
[2022-02-25 18:52] VITALS: BP 118/68
[2022-02-25] MEDS: ARIPiprazole 2 MG TAB PO SCH (21:48)
[2022-02-25] MEDS: ACETAMINOPHEN TAB 650MG DOSE (2X325MG) PO PRN (21:49)
[2022-02-26 06:20] VITALS: BP 116/70
[2022-02-26] MEDS: SERTRALINE HCL 25 MG TABLET PO SCH (09:18)
[2022-02-26] MEDS: predniSONE 20 MG TAB PO SCH (09:18)
[2022-02-26] MEDS: ACETAMINOPHEN TAB 650MG DOSE (2X325MG) PO PRN ×2 (14:35→21:11)
[2022-02-26 17:54] VITALS: BP 131/79
[2022-02-26] MEDS: ARIPiprazole 2 MG TAB PO SCH (21:36)
[2022-02-27 06:19] VITALS: BP 109/60
[2022-02-27] MEDS: predniSONE 20 MG TAB PO SCH (08:30)
[2022-02-27] MEDS: SERTRALINE HCL 25 MG TABLET PO SCH (08:30)
[2022-02-27 18:00] VITALS: BP 140/78
[2022-02-27] MEDS: MAALOX 30 ML SUSP *UDC PO PRN (18:05)
[2022-02-27] MEDS: ARIPiprazole 2 MG TAB PO SCH (20:33)
[2022-02-27] MEDS: ACETAMINOPHEN TAB 650MG DOSE (2X325MG) PO PRN (20:34)
[2022-02-28 06:59] VITALS: BP 135/101
[2022-02-28] MEDS: predniSONE 20 MG TAB PO SCH (09:18)
[2022-02-28] MEDS: SERTRALINE HCL 25 MG TABLET PO SCH (09:18)
[2022-02-28] MEDS ORDERED: SERT25TA21 PO (11:29)
[2022-02-28] MEDS ORDERED: ABIL1TAB13 PO (11:29)
== END 2022-02-28 13:20 | disposition home or self-care (01) | DRG 885 ==
LOC: M PSY 02-23 00:35
PROVIDERS: ADMIT Student in an Organized Health Care Education/Training Program; ATTEND Student in an Organized Health Care Education/Training Program
DX: F33.1 Major depressive disorder, recurrent, moderate (principal); R45.851 Suicidal ideations; F43.10 Post-traumatic stress disorder, unspecified; F17.200 Nicotine dependence, unspecified, uncomplicated; F41.9 Anxiety disorder, unspecified; D72.829 Elevated white blood cell count, unspecified